=== PATIENT | male | born 1975 | race Caucasian/White ===

== ENCOUNTER 2020-06-19 19:34 | Observation (INO) | payer SELFPAY ==
[~2020-06-19] VITALS: Ht 170.2 cm; Wt 59.0 kg
[2020-06-19 20:00] VITALS: BP 122/68
--- NOTE | 2020-06-19 20:00 | NUR ---
Time: 1999 A 45 year old MALE admitted to under services of AGUSTINA KING DO, Pt. arrived via wheel chair from [place]. Chief complaint: LEFT CALCANEUS FRACTURE. KAYLEE BAUTISTA
[2020-06-19] MEDS ORDERED: HYDROCODONE-AC1 EAC1 PO (21:01)
[2020-06-19] MEDS ORDERED: NAPROXEN500 MG PO (21:01)
--- NOTE | 2020-06-19 21:03 | NUR ---
CALLED DR. FARIA AWARE PT IN ROOM AND NEED ORDERS, ALSO AWARE MEDICATIONS ARE UP TO DATE.
--- NOTE | 2020-06-19 21:46 | NUR ---
CALLED CONSULT FOR [facility]ESS[facility] SPOKE WTIH DR. GRANT, ORDERS TAKEN AND REVIEWED.
--- NOTE | 2020-06-19 21:50 | NUR ---
MEDICATED WITH NORCO PO PER PRN ORDER FOR C/O LEFT LEG/HEEL PAIN, RATES PAIN 8 ON PAIN SCALE 0-10. SEE EMAR. CALL LIGHT IN REACH.
--- NOTE | 2020-06-19 22:00 | NUR ---
APPLIED DOROTA/SCD TO RIGHT LEG. PT LEFT LEG ELEVATED UP ON 2 PILLOWS AND ICE PACK TO BACK OF LEFT KNEE PER PT REQUEST FROM DR. KRISHNAMURTHY.
--- NOTE | 2020-06-19 22:15 | NUR ---
ANOTHER RN TRIED TO START PT IV FOR SURGERY TOMORROW. PT REFUSED STATES HE ISN'T GETTING SURGERY UNTIL 11AM AND IT WILL BOTHER HIM ALL NIGHT.
--- NOTE | 2020-06-19 22:41 | NUR ---
CALLED DR. FARIA REGARDING PT REQUESTING ANOTHER PAIN PILL THAT I GAVE BEFORE PER PT. HE REFUSES MORPHINE HE DOESN'T WANT ANY IV MEDICATION. HE STATES HE DOESN'T TAKE PAIN MEDICATION. PER DR. FARIA HE WILL ORDER SOMETHING. PT RATES PAIN 7 OR 8 ON PAIN SCALE 0-10.
--- NOTE | 2020-06-19 23:04 | NUR ---
PT MEDICATED WITH DILAUDID PO FOR C/O LEFT FOOT/HEEL PAIN, RATES PAIN 9 ON PAIN SCALE 0-10. SEE EMAR. CALL LIGHT IN REACH.
[2020-06-19 23:07] LABS: BASO # 0.1 10*3/uL (0.0-0.1); BASO % 0.6 % (0.0-1.0); EOS # 0.2 10*3/uL (0.0-0.4); EOS % 2.9 % (1.0-4.0); HEMATOCRIT 38.6 % (42.0-52.0); LYMPH # 3.4 10*3/uL (1.3-4.4); LYMPH % 44.5 % (27.0-41.0); MEAN CELL VOLUME 90.6 fl (80.0-94.0); MEAN CORPUSCULAR HGB CONC 33.2 g/dl (33.0-37.0); MONO # 0.5 10*3/uL (0.1-1.0); NEUT # 3.5 10*3/uL (2.3-7.9); NEUT % 44.9 % (47.0-73.0); PLATELET COUNT AUTOMATED 237 10*3/uL (130-400); RED BLOOD COUNT 4.26 10*6/uL (4.50-5.90); RED CELL DISTRI WIDTH 12.8 % (0-14.5); WHITE BLOOD COUNT 7.7 10*3/uL (4.8-10.8)
[2020-06-19 23:32] LABS: ALKALINE PHOSPHATASE 115 U/L (45-117); BUN 20 mg/dl (7-24); CHLORIDE 108 mmol/L (98-107); CREATININE 1.16 mg/dL (0.70-1.30); POTASSIUM 3.6 mmol/L (3.5-5.1); SGOT/AST 15 IU/L (3-35); SGPT/ALT 17 U/L (12-78); SODIUM 141 mmol/L (136-145); TOTAL PROTEIN 6.3 gm/dL (6.4-8.2)
[2020-06-20] VITALS (10 sets, daily range): BP systolic 102–124; BP diastolic 52–75
--- NOTE | 2020-06-20 | NUR ---
RESTING IN BED. STATES MEDICATION HELPS A LITTLE. PT AWARE WHEN MEDICATION ARE DUE. CALL LIGHT IN REACH. WILL CON'T TO MONITOR. SEE SHIFT ASSESSMENT.
--- NOTE | 2020-06-20 01:03 | NUR ---
CALLED DR. GRANT REGARDING PT C/O NOT BEING ABLE TO FEEL LLE AND IT FEELS LIKE SOMETHING IS CRUSHING HIS FOOT. PT REQUESTING TO REMOVED UNABOOTS HAVING TERRIBLE PAIN AND PAIN MEDICATION ISN'T HELPING PER PT. PER DR. GRANT OK TO REMOVE UNABOOT AND APPLY FRANCESCA WRAP.
--- NOTE | 2020-06-20 01:15 | NUR ---
REMOVED OUTER UNABOOT AND PT STATES FEELS BETTER TO LEAVE INNER WHITE WRAP ON, COVERED IT WITH FRANCESCA WRAP. PT STATES FEELS BETTER.
--- NOTE | 2020-06-20 01:53 | NUR ---
PT RESTING IN BED. REFUSED ANY PAIN EMDICATION AT THIS TIME. STATES IT FEELS BETTER. CALL LIGHT IN REACH.
--- NOTE | 2020-06-20 06:15 | NUR ---
RESTING IN BED WITH EYES CLOSED. RESP-EASY AND REGULAR. CALL LIGHT IN REACH.
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
--- NOTE | 2020-06-20 09:20 | NUR ---
PT TAKEN TO SURGERY DEPT AT THIS TIME.
--- NOTE | 2020-06-20 12:01 | NUR ---
PT REMAINS IN SURGERY DEPT.
--- NOTE | 2020-06-20 13:57 | NUR ---
PT REMAINS IN SURGERY DEPT.
--- NOTE | 2020-06-20 16:45 | NUR ---
PT RETURNED TO ROOM FROM SURGERY DEPT. VSS. A&OX3. DENIES NEED FOR PAIN MED AT THIS TIME. LARGE CAST/DRESSING TO LEFT LOWER LEG.
--- NOTE | 2020-06-20 18:10 | NUR ---
PT HAD ME TAKE HIS HEPLOCK OUT, STATES HE DOES NOT WANT TO TAKE IV PAIN MEDS AND HE WOULD LIKE IT OUT TONIGHT.
--- NOTE | 2020-06-20 20:00 | NUR ---
Patient asked if he could get a pill to take for his nicotine craving, he states his and doctor told him it would take longer for his healing if he had nicotine in his system and patient is wearing a nicotine patch. Spoke with Dr. Crocker over patients concern and he stated he would not give him chantix tonight, but the patient could possibly be given a perscription in the morning to go home with. Patient denies any pain at this time in his left leg. Ice pack placed behind knee. Patient left with call light in reach.
[2020-06-21] VITALS: BP 109/62
--- NOTE | 2020-06-21 00:23 | NUR ---
24 HR chart check completed.
[2020-06-21 06:36] LABS: BASO % 0.1 % (0.0-1.0); EOS % 0.1 % (1.0-4.0); HEMATOCRIT 35.5 % (42.0-52.0); LYMPH # 2.1 10*3/uL (1.3-4.4); LYMPH % 15.2 % (27.0-41.0); MEAN CELL VOLUME 89.9 fl (80.0-94.0); MEAN CORPUSCULAR HGB 29.4 pg (27.0-31.0); MEAN CORPUSCULAR HGB CONC 32.7 g/dl (33.0-37.0); MEAN PLATELET VOLUME 10.2 fl (9.6-12.3); MONO # 1.1 10*3/uL (0.1-1.0); MONO % 7.7 % (3.0-9.0); NEUT # 10.5 10*3/uL (2.3-7.9); NEUT % 76.5 % (47.0-73.0); PLATELET COUNT AUTOMATED 231 10*3/uL (130-400); RED BLOOD COUNT 3.95 10*6/uL (4.50-5.90); RED CELL DISTRI WIDTH 12.4 % (0-14.5); WHITE BLOOD COUNT 13.8 10*3/uL (4.8-10.8)
[2020-06-21 06:50] LABS: BUN 17 mg/dl (7-24); CHLORIDE 108 mmol/L (98-107); CREATININE 0.99 mg/dL (0.70-1.30); POTASSIUM 4.5 mmol/L (3.5-5.1); SODIUM 138 mmol/L (136-145)
[2020-06-21 08:00] VITALS: BP 123/75
--- NOTE | 2020-06-21 09:00 | NUR ---
case management visits with patient, he states he is probably being discharged to home today, he has crutches and a case boot to wear he states he is comfortable using the crutches, he has been using them for the past two weeks, he denies any home needs, he stated he was visited by med assist and will fill out the paperwork for the hosptial stay, ccase management will follow for any other needs
[2020-06-21 12:00] VITALS: BP 129/81
[2020-06-21] MEDS ORDERED: HYDROCODONE-AC1 EAC1 PO (13:01)
[2020-06-21] MEDS ORDERED: CHANTRIX0.5 MG PO (13:01)
--- NOTE | 2020-06-21 14:48 | NUR ---
NMDIS Discharge instructions reviewed with patient/family. Patient receptive and verbalizes understanding. Follow-up care arranged. Written instructions given to patient/family. BEATRIZ MARC
== END 2020-06-21 14:48 | disposition home or self-care (01) ==
LOC: 4E 19:34
PROVIDERS: Student in an Organized Health Care Education/Training Program; ADMIT Internal Medicine
DX: S92.062A Displaced intraarticular fracture of left calcaneus, initial encounter for closed fracture (principal); D64.9 Anemia, unspecified; E87.8 Other disorders of electrolyte and fluid balance, not elsewhere classified; R73.9 Hyperglycemia, unspecified; E83.41 Hypermagnesemia; K21.9 Gastro-esophageal reflux disease without esophagitis; E44.0 Moderate protein-calorie malnutrition; F17.210 Nicotine dependence, cigarettes, uncomplicated; R00.0 Tachycardia, unspecified; W11.XXXA Fall on and from ladder, initial encounter; Y93.89 Activity, other specified; Y92.89 Other specified places as the place of occurrence of the external cause; Y99.8 Other external cause status